=== PATIENT | female | born 1970 | race Hispanic/Latino ===

== ENCOUNTER 2018-08-10 22:01 | Emergency (ER) | payer SELFPAY ==
[~2018-08-10] VITALS: Ht 154.9 cm; Wt 46.3 kg
--- NOTE | 2018-08-10 22:47 | Diagnostic Imaging Report ---
EXAMINATION: PA and lateral views of the chest. COMPARISON: None CLINICAL HISTORY: Cough DISCUSSION: Lines/tubes: None. Lungs: The lungs are well inflated and clear. No pneumonia or pulmonary edema. Pleura: No pleural effusion or pneumothorax. Heart and mediastinum: The cardiomediastinal silhouette is normal. Bones and soft tissues: No acute bony abnormalities. IMPRESSION: No acute cardiopulmonary abnormalities. Signed by: Dr. Ryder Fontenot M.D. on 08/10/2018 10:43 PM
--- NOTE | 2018-08-10 22:53 | NUR ---
PT DISCHARGED FROM ER IN NAD. VERBALIZED UNDERSTANDING OF TEACHINGS. PT TO CONTINUE PRESCRIPTIONS FROM HER PCP FOR INFLUENZA.
== END 2018-08-10 22:53 | disposition home or self-care (01) ==
LOC: ER 22:01
DX: R05 Cough (principal); J11.1 Influenza due to unidentified influenza virus with other respiratory manifestations; E78.5 Hyperlipidemia, unspecified
CPT/HCPCS: 71046; 99283